=== PATIENT | female | born 1975 | race Asian ===

== ENCOUNTER 2017-06-03 05:42 | Inpatient (IN) | payer BC ==
[2017-05-18 14:16] LABS: BASO % 0.3 %; BASO ABS # 0.02 K/uL (0-0.2); EOS % 0.8 %; EOS ABS # 0.06 K/uL (0-0.5); HEMATOCRIT 32.8 % (37-47); HEMOGLOBIN 10.9 g/dL (12.0-16.0); IG# 0.12 K/uL (0.00-0.02); LYMPH % 19.2 %; LYMPH ABS # 1.43 K/uL (1.2-3.4); MEAN CELL VOLUME 84.1 fL (80-100); MEAN CORPUSCULAR HEMOGLOBIN 27.9 pg (25-34); MEAN CORPUSCULAR HGB CONC 33.2 g/dl (32-36); MEAN PLATELET VOLUME 11.3 fL (7.4-10.4); MONO % 7.3 %; MONO ABS # 0.54 K/uL (0.11-0.59); NEUT % 70.8 %; NEUT ABS # 5.27 K/uL (1.4-6.5); PLATELET COUNT 154 K/uL (130-400); RED CELL DISTRIBUTION WIDTH CV 14.2 % (11.5-14.5); RED CELL DISTRIBUTION WIDTH SD 43.3 fL (36.4-46.3); WHITE BLOOD COUNT 7.44 K/uL (4.8-10.8)
--- NOTE | 2017-06-02 11:15 | HISTORY & PHYSICAL EXAMINATION ---
DATE OF ADMISSION: 06/03/2017 REASON FOR ADMISSION: Term elective repeat section. HISTORY OF PRESENT ILLNESS: The patient is a 42-year-old female 3, para 2, EDC 06/10/2017 at 39 weeks, admitted for an elective repeat section. course has been uncomplicated. The patient has been followed with us for the entire course of the . PAST MEDICAL HISTORY: Includes hypothyroidism. PAST SURGICAL HISTORY: Includes x2 in 2011 and 2013. SOCIAL HISTORY: Denies smoking, alcohol or drug use. FAMILY HISTORY: Noncontributory. CURRENT MEDICATIONS: Include vitamins. ALLERGIES: NSAIDS, CAUSING A RASH. PHYSICAL EXAMINATION: HEENT: Within normal limits. LUNGS: Clear to auscultation. COR: Regular rate and rhythm. ABDOMEN: Soft, nontender, gravid. heart tone category 1. NEUROLOGICALLY: Intact. SKIN: Warm and dry. No rash. EXTREMITIES: Within normal limits. ASSESSMENT: Term or elective repeat section at term.
[~2017-06-03] VITALS: Ht 160 cm; Wt 66.0 kg
[2017-06-03] VITALS (17 sets, daily range): BP systolic 97–119; BP diastolic 53–71; PULSE 55–97; TEMP 36.4–37.2; O2SAT 97–99; Ht 160 cm; Wt 66.0 kg
[~2017-06-03 05:42] MED LIST: CALC500C3 PO; PRENTAB26 PO
[2017-06-03] MEDS ORDERED: CITRIC ACID/SODIUM CITRATE 15 ML UDC PO ONE (05:45)
[2017-06-03] MEDS ORDERED: CEFAZOLIN IV 1,000 MG in SYRINGE 0 ML IV SCH (06:00)
[2017-06-03 06:14] LABS: BASO % 0.4 %; BASO ABS # 0.03 K/uL (0-0.2); EOS % 0.6 %; EOS ABS # 0.05 K/uL (0-0.5); HEMATOCRIT 35.6 % (37-47); HEMOGLOBIN 12.2 g/dL (12.0-16.0); LYMPH % 27.9 %; LYMPH ABS # 2.29 K/uL (1.2-3.4); MEAN CELL VOLUME 83.2 fL (80-100); MEAN CORPUSCULAR HEMOGLOBIN 28.5 pg (25-34); MEAN PLATELET VOLUME 10.8 fL (7.4-10.4); MONO ABS # 0.82 K/uL (0.11-0.59); NEUT % 59.9 %; NEUT ABS # 4.91 K/uL (1.4-6.5); PLATELET COUNT 170 K/uL (130-400); RED CELL DISTRIBUTION WIDTH CV 14.4 % (11.5-14.5); RED CELL DISTRIBUTION WIDTH SD 43.6 fL (36.4-46.3)
[2017-06-03 06:31] LABS: MEAN CORPUSCULAR HGB CONC 34.3 g/dl (32-36)
--- NOTE | 2017-06-03 06:46 | History & Physical Bridge Note ---
H&P Re-Evaluation Bridge Note: I have examined the patient, reviewed the History & Physical and in the interval since the performance of the History & Physical I have noted the following changes of clinical significance: No changes noted
[2017-06-03] MEDS ORDERED: MoRPHine SULFATE PF 1 MG/ML 10 ML AMP/VIAL ONE (07:20)
[2017-06-03] MEDS ORDERED: FENTANYL CITRATE INJ 50 MCG/1 ML 2 ML VIAL ONE (07:20)
[2017-06-03] MEDS ORDERED: OXYTOCIN INJ 10 UNITS/ML VIAL ONE (07:21)
[2017-06-03] MEDS ORDERED: PHENYLEPHRINE 100MCG/ML 5ML SYR ONE ×2 (08:04)
[2017-06-03] MEDS ORDERED: PHENYLEPHRINE HCL INJ 10 MG/ML VIAL ONE (08:04)
[2017-06-03] MEDS ORDERED: MIDAZOLAM HCL 1 MG/ML 2ML VIAL ONE (08:09)
[2017-06-03] MEDS ORDERED: LACTATED RINGER'S 1000ML 1,000 ML IV SCH (08:25)
--- NOTE | 2017-06-03 08:25 | [facility] Post Operative Brief Note ---
Immediate Operative Summary Operative Date Jun 03, 2017. Pre-Operative Diagnosis Elective Repeat Caesaren Section Post-Operative Diagnosis Same Procedure(s) Performed Repeat Caesarean Section; Delivery of a live male child at [address] Stark Splicing Technician Surgeon(s) Dr Fuentes Estimated Blood Loss 500 cc Findings Consistent with Post-Op Diagnosis live male Fluids (cc crystalloids) LR 1100 ml. Specimens cord blood placenta-exam Drains None Anesthesia Type Spinal Complication(s) none none Disposition Accompanied Pt To Recover: yes Disposition: L&D
[2017-06-03] MEDS ORDERED: SUPERCREAM 0.870 % 15GM JAR EXT PRN (08:30)
[2017-06-03] MEDS ORDERED: DIPHTHERIA/TETANUS/PERTUSSIS 0.5 ML SYR/VIAL IM. ONE (08:30)
[2017-06-03] MEDS ORDERED: MAGNESIUM HYDROXIDE SUSP 30 ML UDC PO PRN (08:30)
[2017-06-03] MEDS ORDERED: SENNA 8.6 MG TAB PO PRN (08:30)
[2017-06-03] MEDS ORDERED: LANOLIN OINT EXT PRN (08:30)
[2017-06-03] MEDS ORDERED: BENZOCAINE 20% AER SPR 82.5 GM CAN EXT PRN (08:30)
[2017-06-03] MEDS ORDERED: MEASLES, MUMPS & RUBELLA VIRUS VIAL SQ. ONE (08:30)
[2017-06-03] MEDS ORDERED: HYDROCORTISONE ACETATE 25 MG SUPP PR PRN (08:30)
[2017-06-03] MEDS ORDERED: LACTATED RINGER'S 1000ML 500 ML IV PRN (08:33)
[2017-06-03] MEDS ORDERED: NALOXONE HCL INJ 0.08 MG in SYRINGE 1.8 ML IV PRN (08:33)
[2017-06-03] MEDS ORDERED: SODIUM CHLORIDE 0.9% 1000ML 1,000 ML IV PRN (08:33)
[2017-06-03] MEDS ORDERED: NALOXONE HCL INJ 1 MG in SODIUM CHLORIDE 0.9% 1000ML 1,000 ML IV PRN ×4 (08:33)
[2017-06-03] MEDS ORDERED: NO NARCOTICS OR SEDATIVES SCH (08:45)
[2017-06-03] MEDS ORDERED: EpHEDrine SULFATE INJ 50 MG/ML AMP IV PRN (08:45)
[2017-06-03] MEDS ORDERED: NALBUPHINE HCL INJ 10 MG/ML AMP IV PRN (08:45)
[2017-06-03] MEDS ORDERED: PROMETHAZINE HCL INJ 25 MG in SODIUM CHLORIDE 0.9% 50ML 50 ML IV PRN (08:45)
[2017-06-03] MEDS ORDERED: NALOXONE HCL 0.4 MG/1 ML VIAL/CARP IV PRN (08:45)
[2017-06-03] MEDS ORDERED: MoRPHine SULFATE PF 1 MG/ML 10 ML AMP/VIAL EPI PRN (08:45)
[2017-06-03] MEDS ORDERED: DiphenhydrAMINE HCL 50 MG/ML VIAL IV PRN (08:45)
[2017-06-03] MEDS: SIMETHICONE 80 MG CHEW PO SCH ×4 (09:00→20:00)
[2017-06-03] MEDS: OXYTOCIN INJ 30 UNITS in LACTATED RINGER'S 1000ML 1,000 ML IV SCH ×2 (09:03→17:47)
--- NOTE | 2017-06-03 09:24 | OPERATIVE REPORT ---
DATE OF OPERATION: 06/03/2017 PREOPERATIVE DIAGNOSIS: Term elective repeat section. POSTOPERATIVE DIAGNOSIS: Same. PROCEDURE: Repeat section, low segment transverse. SURGEON: Dr. Stark. MANAGER TITLE: Dr. Fuentes. ANESTHESIA: Epidural with Duramorph. CLINICAL HISTORY: The patient is a 42-year-old female, para 2-0-0-2, admitted for an elective repeat section at 39 weeks. The patient was given informed consent. She was given 1 gram of Ancef prior to the start of the procedure and a time-out was called prior to the start of the procedure. DESCRIPTION OF PROCEDURE: After satisfactory spinal anesthesia, the patient was prepped and draped in usual sterile fashion. A low Pfannenstiel incision through a prior scar was then made entering into the abdominal cavity in successive layers without difficulty. The peritoneal cavity was opened. The bladder flap was made, the lower uterine segment was thin. A low segment transverse incision over the lower uterine segment was made. The incision was nicked and the amniotic fluid was noted to be clear. The incision was widened in the AP diameter. The baby was in the transverse occiput transverse position was delivered in the vertex presentation with the aid of fundal pressure. The baby's mouth was suctioned on the perineum. The baby's cord was clamped and cut and the baby handed to roadway designer. Apgars were 9 and 9. weight was 7 pounds 2 ounces. Cord blood was obtained. Placenta was delivered spontaneously intact. Uterus was then exteriorized. Ring forceps were then placed on both angles in the inferior margin and then another ring used to dilate the cervix. Uterus was closed in double layer closure starting with 0 Vicryl suture in a continuous interlocking fashion followed by another imbricating layer of 0 Vicryl suture without any difficulty. Tubes, ovaries bilaterally were found to be within normal limits. The contents of the pelvic and abdominal cavity were then irrigated to clear. Uterus was placed back in the normal anatomical position. The lower uterine segment was inspected and no active bleeding was noted. The fascia was then reapproximated from both ends using 0 Vicryl suture in a continuous fashion. Subcuticular space was irrigated, bleeders were than cauterized and the skin was undermined and the skin was then closed with rené. Clear urine was noted from the [place]. Estimated blood loss 500 mL. Total fluids 1100 mL. The final sponge and instrument count were found to be correct. The patient was placed supine on a stretcher and taken to recovery room in stable condition. I attest to the content of the Intraoperative Record and any orders documented therein. Any exception s are noted below.
[2017-06-03] MEDS: ONDANSETRON INJ 2 MG/ML 2 ML VIAL IV PRN ×2 (09:36→16:23)
--- NOTE | 2017-06-03 11:21 | Anesthesiology Progress Note ---
Anesthesia Post Op Note Date & Time Jun 03, 2017 at 11:20 Notes Mental Status: alert / awake / arousable, participated in evaluation Pt Amnestic to Procedure: Yes Nausea / Vomiting: adequately controlled Pain: adequately controlled Airway Patency, RR, SpO2: stable & adequate BP & HR: stable & adequate Hydration State: stable & adequate Neuraxial Anesthesia: was administered, sensory block is resolving Anesthetic Complications: no major complications apparent
[2017-06-03] MEDS: DOCUSATE SODIUM 100 MG CAP PO SCH (20:00)
[2017-06-04] VITALS (8 sets, daily range): BP systolic 90–107; BP diastolic 55–69; PULSE 64–81; TEMP 36.2–36.9; O2SAT 93–97
[2017-06-04] MEDS ORDERED: DC INTRASPINAL MORPHINE ONE (02:45)
[2017-06-04] MEDS ORDERED: DiphenhydrAMINE HCL 50 MG/ML VIAL IV PRN (02:45)
[2017-06-04] MEDS ORDERED: OXYCODONE/ACETAMINOPHEN 5-325 TAB PO PRN (02:45)
[2017-06-04] MEDS ORDERED: ONDANSETRON INJ 2 MG/ML 2 ML VIAL IV PRN (02:45)
[2017-06-04] MEDS ORDERED: MEPERIDINE HCL 50 MG/ML CARP IV PRN ×2 (02:45)
[2017-06-04] MEDS: OXYCODONE/ACETAMINOPHEN 5-325 TAB PO PRN ×5 (03:43→22:12)
[2017-06-04] MEDS: FERROUS SULFATE 325 MG TAB PO SCH (07:54)
[2017-06-04] MEDS: SIMETHICONE 80 MG CHEW PO SCH ×4 (07:54→19:42)
[2017-06-04 07:55] LABS: BASO % 0.2 %; BASO ABS # 0.02 K/uL (0-0.2); EOS % 0.4 %; EOS ABS # 0.05 K/uL (0-0.5); HEMOGLOBIN 10.8 g/dL (12.0-16.0); IG# 0.05 K/uL (0.00-0.02); LYMPH % 13.6 %; LYMPH ABS # 1.62 K/uL (1.2-3.4); MEAN CELL VOLUME 84.2 fL (80-100); MEAN CORPUSCULAR HEMOGLOBIN 27.6 pg (25-34); MEAN CORPUSCULAR HGB CONC 32.7 g/dl (32-36); MONO % 7.1 %; MONO ABS # 0.85 K/uL (0.11-0.59); NEUT % 78.3 %; NEUT ABS # 9.34 K/uL (1.4-6.5); PLATELET COUNT 139 K/uL (130-400); RED CELL DISTRIBUTION WIDTH CV 14.4 % (11.5-14.5); RED CELL DISTRIBUTION WIDTH SD 44.5 fL (36.4-46.3); WHITE BLOOD COUNT 11.93 K/uL (4.8-10.8)
[2017-06-04] MEDS: PRENATAL VITAMIN TAB PO SCH (07:55)
[2017-06-04] MEDS: DOCUSATE SODIUM 100 MG CAP PO SCH ×2 (07:55→19:42)
--- NOTE | 2017-06-04 10:52 | Surgery Progress Note ---
Surgery Progress Note Date of Service Jun 04, 2017. Subjective Post OP Day: 1 + feeling well, + ambulating, + flatus, + pain controlled Objective Vital Signs: Date Time Temp Pulse Resp B/P (MAP) Pulse Ox O2 Delivery O2 Flow Rate FiO2 06/04/17 08:00 36.4 75 20 102/63 (76) 94 Room Air 06/04/17 08:00 Room Air 06/04/17 03:25 36.7 67 18 100/62 (75) 94 Room Air 06/04/17 02:45 18 94 06/04/17 01:45 16 94 06/04/17 00:25 18 93 06/03/17 23:35 18 97 06/03/17 23:35 37.2 64 18 105/62 (76) 97 Room Air 06/03/17 23:35 97 Room Air 06/03/17 22:15 18 98 06/03/17 21:15 16 97 06/03/17 21:15 16 97 06/03/17 20:15 18 98 06/03/17 19:50 16 98 06/03/17 19:50 36.4 65 16 107/64 (78) 98 Room Air 06/03/17 18:15 18 97 06/03/17 17:15 20 99 06/03/17 16:15 99 Room Air 06/03/17 16:15 16 99 06/03/17 16:15 36.7 70 16 105/63 06/03/17 15:45 20 98 06/03/17 14:40 16 97 06/03/17 13:40 16 99 06/03/17 13:10 36.4 75 16 97/53 (68) 99 Room Air 06/03/17 13:10 36.4 75 16 97/53 (68) 97 Room Air 06/03/17 12:40 16 99 06/03/17 12:10 97 16 119/71 (87) 99 Room Air 06/03/17 11:40 36.7 77 16 104/65 (78) 99 Room Air 06/03/17 11:40 16 99 06/03/17 11:40 99 Room Air 06/03/17 11:10 56 16 99/60 (73) 99 Room Air Abdomen: non tender, non distended, soft Incision(s): clean, dry, intact Extremities: non-tender, normal inspection, no pedal edema, no calf tenderness Laboratory Results: Results Past 24 Hours Test 06/04/17 07:42 Range/Units White Blood Count 11.93 4.8-10.8 K/uL Red Blood Count 3.92 4.2-5.4 M/uL Hemoglobin 10.8 12.0-16.0 g/dL Hematocrit 33.0 37-47 % Mean Corpuscular Volume 84.2 80-100 fL Mean Corpuscular Hemoglobin 27.6 25-34 pg Mean Corpuscular Hemoglobin Concent 32.7 32-36 g/dl Platelet Count 139 130-400 K/uL Mean Platelet Volume 11.0 7.4-10.4 fL Neutrophils (%) (Auto) 78.3 % Lymphocytes (%) (Auto) 13.6 % Monocytes (%) (Auto) 7.1 % Eosinophils (%) (Auto) 0.4 % Basophils (%) (Auto) 0.2 % Neutrophils # (Auto) 9.34 1.4-6.5 K/uL Lymphocytes # (Auto) 1.62 1.2-3.4 K/uL Monocytes # (Auto) 0.85 0.11-0.59 K/uL Eosinophils # (Auto) 0.05 0-0.5 K/uL Basophils # (Auto) 0.02 0-0.2 K/uL RDW Standard Deviation 44.5 36.4-46.3 fL RDW Coefficient of Variation 14.4 11.5-14.5 % Immature Granulocyte % (Auto) 0.4 % Immature Granulocyte # (Auto) 0.05 0.00-0.02 K/uL Assessment & Plan POD#1 regular diet advance care/diet
[2017-06-04] MEDS ORDERED: BISACODYL 5 MG TABEC PO ONE (22:00)
[2017-06-05] MEDS: OXYCODONE/ACETAMINOPHEN 5-325 TAB PO PRN ×3 (04:15→12:54)
[2017-06-05 08:00] VITALS: BP 98/64; PULSE 75; TEMP 37.1; O2SAT 96
[2017-06-05] MEDS: PRENATAL VITAMIN TAB PO SCH (08:06)
[2017-06-05] MEDS: FERROUS SULFATE 325 MG TAB PO SCH (08:06)
[2017-06-05] MEDS: SIMETHICONE 80 MG CHEW PO SCH ×2 (08:06→12:54)
[2017-06-05] MEDS: DOCUSATE SODIUM 100 MG CAP PO SCH (08:06)
[2017-06-05] MEDS ORDERED: BISACODYL 10 MG SUPP PR PRN (08:30)
[2017-06-05] MEDS ORDERED: OXYC-57 PO (10:50)
--- NOTE | 2017-06-05 10:51 | Discharge Instructions ---
Discharge Instructions Date of Service Jun 05, 2017. Admission Reason for Admission: Previous Section Discharge Discharge Diagnosis / Problem: Repeat section Discharge Goals Goal(s): Routine recovery after Activity Recommendations Activity Limitations: per Instructions/Follow-up section . Instructions / Follow-Up Instructions / Follow-Up ACTIVITY RECOMMENDATIONS: * Gradual return to full activity over the next 2-3 weeks. * No lifting - nothing heavier than baby over the next 2-3 weeks. * Do not engage in vigorous exercise, sexual activity or sports until cleared by your physician. * Do not drive or operate any motorized equipment until cleared by your physician. * You may shower/bathe daily. BREAST CARE: If you are not breast feeding: * Wear a supportive bra 24 hours a day for one to two weeks. * Avoid stimulating your breasts and nipples as much as possible during the first few weeks after delivery. * When taking a shower, have the warm water hit your back, not breasts. * When your breasts feel full, apply ice packs. Usually three to four times a day helps ease the discomfort. * Take a mild pain medication (Tylenol/Motrin) when you are uncomfortable. If breast feeding: * Use breast milk to lubricate nipples. Lansinoh cream may be used for sore nipples. You do not need to remove cream prior to breast feeding. If using a different brand of cream, check the label for directions regarding removal of cream prior to nursing. * Wear a supportive bra. * If having problems with breasts or breast feeding, call a sap business intelligence consultant or your health care provider. OVER THE COUNTER MEDICATION: * For discomfort or pain, you may use Acetaminophen (Tylenol), Ibuprofen (Advil ), or Naproxen (Aleve) following the package directions. * For constipation you may use Colace following the package directions. SPECIAL CARE INSTRUCTIONS: When you are discharged from the hospital, it is important for you to follow the instructions listed below: * During the first week at home, you should be able to care for yourself and your baby. In addition, the usual light household activities are encouraged. * Limit your activities to the way you feel. Do not try to clean the house or move furniture. Be sensible. * If you actively engage in sports and have done so up until the time of your delivery, you may resume these activities as soon as you feel able. This may take up to one month or even longer. Use good judgment. * Continue to take your vitamins for at least six weeks after the of your baby. * Your diet need not be limited unless you were on a special diet before your delivery. Breast-feeding mothers need around 2500 calories per day and at least 64-80 ounces of fluid per day (8 to 10 glasses). * You should eat foods from the four major food groups. Crash diets or fad diets are to be avoided. Eating lean meats, fresh fruits and vegetables, low-fat dairy products, high fiber foods and a regular exercise program, will help you get back to your pre- weight without putting your health at risk. * Constipation is sometimes a problem after delivery. Take a mild laxative as needed. If breast feeding, Milk of Magnesia is acceptable to use. You may use a suppository or Fleets enema if no episiotomy. * A daily shower or tub bath is suggested. Be sure to thoroughly and gently dry the perineum. * A bloody vaginal discharge will usually continue until around four weeks post . A small amount of bleeding may continue for as long as six weeks. Vaginal discharge changes from the bright red bleeding after delivery to pink then brownish and finally yellowish-pink before becoming white and disappearing. * Bleeding may increase with activity. Your first period may come in 4-8 weeks. If you are breast feeding, your period may be delayed even longer. * [place] (sex) can begin whenever both you and your partner feel comfortable and do not have any form of genital infection. It is recommended that you wait at least six weeks for internal and external healing to occur. If you have questions, please talk to your health care practitioner. A condom should be used to prevent infection and . * Foreplay, gentle intercourse and lubrication is very important the first several times to prevent pain. A water-based lubricant such as K-Y jelly or Astroglide may be used. * Tampons and/or Douching should be avoided until after six weeks check-up. * If you have RH negative blood and your baby is RH positive, you will receive RHOGAM by injection prior to discharge. The nurse will give you a card to keep with you that has the date and place that you received RHOGAM after delivery. * During your care, you had a Rubella screen done to check for the presence of rubella antibodies in your blood. If your test was negative, you will receive a Rubella vaccine prior to discharge. This vaccine may cause a fever, soreness at the injection site and flu-like symptoms. If these symptoms persist, notify your health care practitioner. is not advised for three months after a Rubella vaccine. * Verbalizes understanding of car seat law as reviewed with patient nursing. * Car Seat hand-out given and reviewed with patient by nursing. * Shaken baby information reviewed with patient by nursing. Call you doctor if: * Heavy bleeding (saturating several pads an hour) or passing clots the size of your fist. * A fever >101 degrees F (38.3 degrees C) on two occasions four hours apart and /or chills. * Unusual pain in the pelvic or vaginal areas. Pain should improve each day . * Call the doctor for any increased redness, drainage or swelling around the incision and any pain unrelieved by prescribed pain medication. * Any signs or symptoms of phlebitis (possible blood clots forming in the veins ): leg pain, warm, red or swollen area on leg. * "Baby Blues" lasting longer than two weeks. If you have any questions or concerns, call your health care practitioner at . FOLLOW-UP VISIT: * Incision check (staple removal) in 1 week. Please call doctor's office at to set up appointment. * Please call the office at to schedule a 6 week examination. It is important you keep this appointment. * It is important for you to make arrangements for either yearly or twice yearly check-ups thereafter. Current Hospital Diet Patient's current hospital diet: Regular Diet Discharge Diet Recommended Diet: Regular OB Diet Procedures Procedures Performed: Repeat Caesarean Section; Delivery of a live male child at 0758 Pending Studies Studies pending at discharge: no Medical Emergencies . Who to Call and When: Medical Emergencies: If at any time you feel your situation is an emergency, please call 911 immediately. . Non-Emergent Contact Non-Emergency issues call your: Primary Care Provider, [facility] [employer] [facility] . . "Provider Documentation" section prepared by Alexis Fuentes. . [place] Drug Monitoring Program Search Results: no issues identified
--- NOTE | 2017-06-05 10:53 | OB/GYN Progress Note ---
SENIOR TRAINER Progress Note Date of Service Jun 05, 2017. Subjective conversation w/ patient, physical exam Ambulation: ambulating normally Voiding: no voiding problems Passing Gas: Yes Diet Tolerance: Regular Diet Lochia: Small Pain: 03/31 Notes: Doing well, no concerns. Pain well controlled. Tolerating regular diet, +flatus -BM. Ambulating without difficulty. Would like to go home today. Objective Vital Signs Date Time Temp Pulse Resp B/P (MAP) Pulse Ox O2 Delivery O2 Flow Rate FiO2 06/05/17 08:00 Room Air 06/05/17 08:00 37.1 75 18 98/64 (75) 96 Room Air 06/04/17 23:30 97 Room Air 06/04/17 23:30 36.7 70 18 107/69 (82) 97 Room Air 06/04/17 16:00 36.2 64 16 90/55 (67) Room Air 06/04/17 16:00 Room Air 06/04/17 12:00 36.9 81 18 91/57 (68) Room Air Physical Exam General Appearance: WELL-APPEARING Respiratory/Chest: chest non-tender, lungs clear Cardiovascular: regular rate, rhythm Abdomen: normal bowel sounds, soft Fundus: Firm Incision Description: Clean, Dry & Intact Extremities: normal range of motion, non-tender, no calf tenderness Assessment and Plan Post-Op Day Number: 2 Continue Routine Care: -D/C home today -F/U in 1 week for staple removal.
[2017-06-05 13:40] VITALS: BP_DIAS 64; PULSE 75; TEMP 37.1
== END 2017-06-05 13:40 | disposition home or self-care (01) | DRG 766 ==
LOC: C.LD 05:42 → EDSTATUS 09:00 → C.OBG 11:32
PROVIDERS: ADMIT Obstetrics & Gynecology; ATTEND Obstetrics & Gynecology
PROC: 10D00Z1 Extraction of Products of Conception, Low, Open Approach (ICD-10-PCS; principal; 2017-06-03 07:30)
DX: O34.211 Maternal care for low transverse scar from previous cesarean delivery (principal); O99.284 Endocrine, nutritional and metabolic diseases complicating childbirth; O09.523 Supervision of elderly multigravida, third trimester; E03.9 Hypothyroidism, unspecified; Z37.0 Single live birth; Z3A.39 39 weeks gestation of pregnancy